=== PATIENT | male | born 1955 | race Caucasian/White ===

== ENCOUNTER 2024-03-14 15:38 | Emergency (ER) | payer MEDICARE, SELFPAY ==
[2024-03-14 15:46] VITALS: BP 124/85; PULSE 50; TEMP 36.4; O2SAT 100; BMI 28.1
--- NOTE | 2024-03-14 15:58 | ED.BACK1 ---
HPI HPI - Back Pain/Injury General Chief Complaint: Back Pain/Injury Stated Complaint: BACK PAIN, LEG NUMBNESS Time Seen by Provider: 03/14/24 15:57 Source: patient Mode of arrival: walk-in Limitations: no limitations History of Present Illness HPI Narrative: 68 year old male presents to the ED for right lower back pain that radiates to his right buttock and posterior upper leg. It has been ongoing for some time. States last week he saw his chiropractor and had x-rays completed. He states he was told his sx were coming from the neck area. He states the pain increased today. Pt denies fever, chills, injury, urinary sx. Denies change in bowel and/or bladder control. Denies saddle anesthesia. He is driving today. He is ambulatory with a cane. Pt is declining imaging here today. Related Data Previous Rx's ?Medication ?Instructions ?Recorded hydrocodone 5 mg-acetaminophen 325 1 tab PO Q8H PRN pain #12 tabs 03/14/24 mg tablet prednisone 10 mg tablet See Rx Instructions .Route 03/14/24 .COMPLEX #30 tabs tizanidine 2 mg capsule (Zanaflex) 2 mg PO Q8H PRN muscle spasticity 03/14/24 #12 caps Allergies Allergy/AdvReac Type Severity Reaction Status Date / Time amoxicillin [From Augmentin] Allergy Mild Abdominal Verified 03/14/24 15:46 Pain clavulanic acid Allergy Mild Abdominal Verified 03/14/24 15:46 [From Augmentin] Pain Opioid HPI Opioid Management Most Recent Opioid Data: No Data to Display Review of Systems ROS Constitutional Denies: fever or chills Cardiovascular Denies: chest pain Respiratory Denies: shortness of breath Gastrointestinal Denies: abdominal pain, nausea, vomiting or diarrhea Genitourinary Denies: painful urination, urinary frequency, urinary urgency or blood in urine Musculoskeletal Reports: back pain and extremity pain; Denies: neck pain Integumentary/Breast Denies: rash Neurological Denies: headache, numbness in extremities, weakness in extremities or lack of coordination PFSH PFSH Social History Little interest or pleasure in doing things: not at all Feeling down, depressed, or hopeless: not at all Exam Constitutional Vital Signs, click to edit/add: Last Vital Signs Temp 97.6 F 03/14/24 15:46 Pulse 88 03/14/24 16:23 Resp 18 03/14/24 16:23 BP 111/88 03/14/24 16:23 Pulse Ox 98 03/14/24 16:23 O2 Del Method Room Air 03/14/24 15:46 Common normals: no apparent distress and oriented x3 General appearance: cooperative Eye Common normals: conjunctivae normal and no scleral icterus Neck & C-Spine Common normals: supple Chest Chest: symmetrical chest wall rise Respiratory Common normals: normal respiratory effort Effort & inspection: able to speak in complete sentences Cardio Common normals: regular rate Back & Pelvis Thoracic spine/upper back: normal to inspection; no thoracic spinal tenderness and no paraspinal muscle tenderness Lumbar spine/lower back: normal to inspection and paraspinal muscle tenderness (Right-sided and into right buttock.); no lumbar spinal tenderness Other: Pt moves extremities. Neuro Common normals: oriented x3 Sensorium/orientation: awake and alert Speech: speech normal Course Vital Signs Vital signs: Vital Signs Temperature 97.6 F 03/14/24 15:46 Pulse Rate 50 L 03/14/24 15:46 Respiratory Rate 18 03/14/24 15:46 Blood Pressure 124/85 03/14/24 15:46 Pulse Oximetry 100 03/14/24 15:46 Oxygen Delivery Method Room Air 03/14/24 15:46 Temperature 97.6 F 03/14/24 15:46 Pulse Rate 88 03/14/24 16:23 Respiratory Rate 18 03/14/24 16:23 Blood Pressure 111/88 03/14/24 16:23 Pulse Oximetry 98 03/14/24 16:23 Oxygen Delivery Method Room Air 03/14/24 15:46 MDM - Back Pain/Injury MDM Narrative Medical decision making narrative: The patient declined imaging here today as he had imaging last week at his chiropractor's office. He was medicated with Decadron and Toradol here; he was driving today. [place] was [place]. Prescriptions were provided for prednisone, Zanaflex, and norco. Follow up with pcp for a recheck, further evaluation and treatment. Medical Records Attestation: I reviewed the patient's medical records. Discharge Plan Discharge Chief Complaint: Back Pain/Injury Clinical Impression: Back pain with right-sided sciatica Patient Disposition: Home, Self-Care Time of Disposition Decision: 15:59 Condition: Good Mode of Transportation: Private Vehicle Prescriptions / Home Meds: New prednisone 10 mg tablet See Rx Instructions .ROUTE .COMPLEX Qty: 30 0RF Rx Instructions: Take 5 tablets on days 1-2, 4 tabs on days 3-4, 3 tabs on days 5-6, 2 tabs on days 7-8, 1 tab on days 9-10. tizanidine [Zanaflex] 2 mg capsule 2 mg PO Q8H PRN (Reason: muscle spasticity) Qty: 12 0RF hydrocodone-acetaminophen 5-325 mg tablet 1 tab PO Q8H PRN (Reason: pain) Qty: 12 0RF Print Language: Bengali Instructions: Sciatica (ED), Back Pain (ED) Additional Instructions: Return to the ER for new or worsening symptoms. Discharge Date/Time: 03/14/24 16:24
[2024-03-14] MEDS: DEXAMETHASONE SOD PHOS 10 MG/ML VIAL IM (16:15)
[2024-03-14] MEDS: KETOROLAC TROMETHAMINE 30 MG/ML VIAL IM (16:16)
[2024-03-14 16:23] VITALS: BP 111/88; PULSE 88; O2SAT 98
== END 2024-03-14 16:24 | disposition home or self-care (01) ==
PROVIDERS: Emergency Provider Emergency Medicine
DX: M54.41 Lumbago with sciatica, right side (principal)
CPT/HCPCS: 96372; 99284; J1100; J1885